=== PATIENT | female | born 1965 | race Caucasian/White ===

== ENCOUNTER → 2017-12-25 12:26 | Outpatient (CLI) | payer OTHER, SELFPAY ==
--- NOTE | 2017-12-25 | DI.MRI.S_ITS ---
PROCEDURE: MR PELIS WO/W CON INDICATIONS: ARTHROPATHY TECHNIQUE: Noncontrast axial and oblique coronal T1 spin echo and STIR through the sacroiliac joints. COMPARISON: None. FINDINGS: Image quality: Excellent. Bones: The sacroiliac joints appear int preserved no act. No periarticular bone marrow edema or enhancement to suggest acute sacroiliitis. No periarticular sclerosis or fatty changes. No discrete bony erosions. No bony ankylosis. There are small cystic changes and enhancement in the left femoral head at the head-neck junction. No suspicious marrow space occupying lesions. The visualized lower lumbar spine demonstrates facet arthropathy at the lumbosacral junction. Soft tissues: No presacral masses. Visualized bowel loops appear normal in caliber and wall thickness. No pathologic free pelvic fluid. There are multiple intramural uterine fibroids noted, including a right paracentral fibroid in the fundus measuring approximately 1.7 x 1.1 cm and a left lateral intramural fibroid measuring 1.4 x 1.0 cm. There is a small amount of fluid in the endometrium likely representing physiologic changes. IMPRESSION: 1. No evidence of sacroiliitis. 2. Small cystic changes anteriorly in the left femoral head-neck junction suggestive of synovial herniation pits. The findings are nonspecific but may be associated with femoral acetabular impingement in the appropriate clinical context. 3. Multiple small intramural uterine fibroids. Dictated by: Gonzalo Headley M.D. on 12/25/2017 at 16:02 Approved by: Gonzalo Headley M.D. on 12/25/2017 at 16:08
== END ==
PROVIDERS: PCP Family Medicine; Visit Provider Specialist/Technologist Athletic Trainer
DX: M47.817 Spondylosis without myelopathy or radiculopathy, lumbosacral region (principal); M12.9 Arthropathy, unspecified; D25.1 Intramural leiomyoma of uterus
CPT/HCPCS: 72197; A9579

== ENCOUNTER → 2018-01-08 10:18 | Outpatient (CLI) | payer OTHER, SELFPAY ==
--- NOTE | 2018-01-08 | DI.MG.S_ITS ---
BILATERAL DIGITAL SCREENING MAMMOGRAM 3D/2D WITH CAD: 01/08/2018 CLINICAL: Routine screening. Family history of breast cancer. Comparison is made to exams dated: 10/23/2016 mammogram - [facility], 02/03/2015 mammogram, and 10/21/2013 mammogram - [facility]. The tissue of both breasts is heterogeneously dense. This may lower the sensitivity of mammography. Current study was also evaluated with a Computer Aided Detection (CAD) system. No significant masses, calcifications, or other findings are seen in either breast. There has been no significant interval change. IMPRESSION: NEGATIVE There is no mammographic evidence of malignancy. A 1 year screening mammogram is recommended.(01/09/2019) This exam was interpreted at Station ID: [id number]. NOTE: For mammograms, a report in lay terms will be sent to the patient. Approximately 15% of breast malignancies will not be visualized mammographically. In the management of a palpable breast mass, a negative mammogram must not discourage biopsy of a clinically suspicious lesion. Electronically Signed By: Ced mcdowell/andrew:01/08/2018 23:25:05 letter sent: Normal Exam ACR BI-RADS Category 1: Negative 3341F
== END ==
PROVIDERS: PCP Family Medicine; Visit Provider Family Medicine
DX: Z12.31 Encounter for screening mammogram for malignant neoplasm of breast (principal); Z80.3 Family history of malignant neoplasm of breast
CPT/HCPCS: 77063; 77067

== ENCOUNTER → 2018-01-27 09:04 | Outpatient (CLI) | payer OTHER, SELFPAY ==
[2018-01-27 09:23] LABS: Bacteria Urine None Seen; RBC Urine None Seen (0-5/HPF)
[2018-01-27 10:08] LABS: Hematocrit 40.5 % (36-46); Hemoglobin 13.7 g/dL (12.0-16.0); Mean Corpuscular HGB Conc 33.9 % (30-36); Mean Corpuscular Hemoglobin 31.2 PG (26-34); Mean Corpuscular Volume 91.9 fL (80-100); Platelet Count 233 X10^3/uL (150-400); Red Blood Cell Count 4.41 X10^6/uL (4.0-5.2); Red Cell Distribution Width 12.2 % (11.6-14.8)
[2018-01-27 10:18] LABS: Alanine Aminotransferase 31 IU/L (9-52); Albumin 4.2 g/dL (3.5-5.0); Albumin Globulin Ratio 1.4 (1.0-2.8); Alkaline Phosphatase 89 U/L (38-126); Aspartate Aminotransferase 28 IU/L (14-36); BUN Creatinine Ratio 22.5 (6-22); Bilirubin Total 0.5 mg/dL (0.2-1.3); Blood Urea Nitrogen 18 mg/dL (7-17); Calcium 9.2 mg/dL (8.4-10.2); Carbon Dioxide 30 mmol/L (22-32); Chloride 103 mmol/L (98-107); Cholesterol 162 mg/dL (140-199); Estimated Glomerular Filt Rate > 60.0 mL/min (>60); Globulin 3.1 g/dL (1.7-4.1); Glucose 106 mg/dL (70-100); HDL Cholesterol 55 mg/dL (40-60); HEMOLYSIS < 15 (0-50); LDL Cholesterol Calculated 94 mg/dL (<100); Potassium 4.4 mmol/L (3.4-5.1); Sodium 142 mmol/L (137-145); Total Protein 7.3 g/dL (6.3-8.2); Triglycerides 66 mg/dL (35-150)
[2018-01-27 10:25] LABS: Free T4, Direct Thyroxine 0.93 ng/dL (0.78-2.19)
[2018-01-27 11:18] LABS: Appearance Urine UA CLEAR; Bilirubin Urine UA NEGATIVE (NEGATIVE); Color Urine UA YELLOW; Glucose Urine UA NEGATIVE (Normal); Ketones Urine UA NEGATIVE (NEGATIVE); Leukocyte Esterase Urine UA TRACE (NEGATIVE); Nitrite Urine UA NEGATIVE (Negative); Occult Blood Urine UA NEGATIVE (Negative); Protein Urine UA NEGATIVE (Negative); Specific Gravity Urine UA <=1.005 (1.000-1.035); Urobilinogen Urine UA 0.2 E.U./dL (0.2)
[2018-01-27 12:08] LABS: Culture Indicated Urine Cult Not Indicated; Squamous Epithelial Cell Urine 5-10 /HPF; WBC Urine 1-5/HPF (0-5/HPF)
== END ==
PROVIDERS: PCP Family Medicine; Visit Provider Family Medicine
DX: E03.9 Hypothyroidism, unspecified (principal); Z00.00 Encounter for general adult medical examination without abnormal findings; Z51.81 Encounter for therapeutic drug level monitoring
CPT/HCPCS: 36415; 80053; 80061; 81001; 84439; 84443; 84481; 85027

== ENCOUNTER → 2019-01-14 16:05 | Outpatient (CLI) | payer OTHER, SELFPAY ==
--- NOTE | 2019-01-14 | DI.MG.S_ITS ---
BILATERAL DIGITAL SCREENING MAMMOGRAM 3D/2D WITH CAD: 01/14/2019 CLINICAL: Routine screening. Family history of breast cancer. Comparison is made to exams dated: 01/08/2018 mammogram, 10/23/2016 mammogram - [facility], and 02/03/2015 mammogram - [facility]. The tissue of both breasts is heterogeneously dense. This may lower the sensitivity of mammography. Current study was also evaluated with a Computer Aided Detection (CAD) system. No significant masses, calcifications, or other findings are seen in either breast. There has been no significant interval change. IMPRESSION: NEGATIVE There is no mammographic evidence of malignancy. A 1 year screening mammogram is recommended. This exam was interpreted at Station ID: [id number]. NOTE: For mammograms, a report in lay terms will be sent to the patient. Approximately 15% of breast malignancies will not be visualized mammographically. In the management of a palpable breast mass, a negative mammogram must not discourage biopsy of a clinically suspicious lesion. Electronically Signed By: Gonzalo obrien/andrew:01/14/2019 17:09:04 letter sent: Normal Exam ACR BI-RADS Category 1: Negative 3341F
== END ==
PROVIDERS: PCP Family Medicine; Visit Provider Family Medicine
DX: Z12.31 Encounter for screening mammogram for malignant neoplasm of breast (principal); Z80.3 Family history of malignant neoplasm of breast
CPT/HCPCS: 77063; 77067

== ENCOUNTER → 2019-03-04 08:39 | Outpatient (CLI) | payer OTHER, SELFPAY ==
[2019-03-04 10:27] LABS: TSH w/ Reflex to FT4 0.74 uIU/mL (0.47-4.68)
== END ==
PROVIDERS: PCP Family Medicine; Visit Provider Family Medicine
DX: E03.9 Hypothyroidism, unspecified (principal)
CPT/HCPCS: 36415; 84443

== ENCOUNTER → 2019-05-18 08:00 | Outpatient (CLI) | payer OTHER, SELFPAY ==
[2019-05-18 08:35] LABS: Add Manual Diff / Slide Review NO; Basophils Absolute Auto 0 /uL (0-100); Basophils Percent Auto 0.6 % (0-2); Eosinophils Absolute Auto 100 /uL (0-450); Eosinophils Percent Auto 1.8 % (2-4); Hematocrit 43.7 % (36-46); Hemoglobin 14.7 g/dL (12.0-16.0); Lymphocytes Absolute Auto 1300 /uL (1100-4500); Lymphocytes Percent Auto 20.3 % (25-40); Mean Corpuscular HGB Conc 33.7 % (30-36); Mean Corpuscular Hemoglobin 30.8 PG (26-34); Mean Corpuscular Volume 91.5 fL (80-100); Monocytes Absolute Auto 700 /uL (0-900); Monocytes Percent Auto 11.1 % (3-14); Neutrophils Absolute Auto 4400 /uL (1500-7000); Neutrophils Percent Auto 66.2 % (50-75); Platelet Count 262 X10^3/uL (150-400); Red Blood Cell Count 4.77 X10^6/uL (4.0-5.2); Red Cell Distribution Width 12.5 % (11.6-14.8); White Blood Cell Count 6.6 X10^3/uL (4.5-11.0)
[2019-05-18 08:41] LABS: Alanine Aminotransferase 23 IU/L (<35); Albumin 4.5 g/dL (3.5-5.0); Albumin Globulin Ratio 1.3 (1.0-2.8); Alkaline Phosphatase 102 U/L (38-126); Aspartate Aminotransferase 28 IU/L (14-36); BUN Creatinine Ratio 13.3 (6-22); Bilirubin Total 0.3 mg/dL (0.2-1.3); Blood Urea Nitrogen 12 mg/dL (7-17); Calcium 9.5 mg/dL (8.4-10.2); Carbon Dioxide 26 mmol/L (22-32); Chloride 103 mmol/L (98-107); Cholesterol 160 mg/dL (140-199); Estimated Glomerular Filt Rate > 60.0 mL/min (>60); Globulin 3.4 g/dL (1.7-4.1); Glucose 120 mg/dL (70-100); HDL Cholesterol 39 mg/dL (40-60); HEMOLYSIS < 15 (0-50); LDL Cholesterol Calculated 100 mg/dL (<100); Potassium 4.1 mmol/L (3.4-5.1); Sodium 139 mmol/L (137-145); Total Protein 7.9 g/dL (6.3-8.2); Triglycerides 104 mg/dL (35-150)
[2019-05-18 09:10] LABS: Free T3, Triiodothyronine Free 2.81 pg/mL (2.77-5.27); Free T4, Direct Thyroxine 0.88 ng/dL (0.78-2.19)
[2019-05-18 09:24] LABS: Thyroid Stimulating Hormone 2.13 uIU/mL (0.47-4.68)
== END ==
PROVIDERS: PCP Family Medicine; Referring Provider Family Medicine; Visit Provider Family Medicine
DX: Z00.00 Encounter for general adult medical examination without abnormal findings (principal); K21.9 Gastro-esophageal reflux disease without esophagitis; E03.9 Hypothyroidism, unspecified; Z13.220 Encounter for screening for lipoid disorders
CPT/HCPCS: 36415; 80053; 80061; 84439; 84443; 84481; 85025

== ENCOUNTER 2019-05-29 07:20 | Day surgery (SDC) | payer OTHER, SELFPAY ==
--- NOTE | 2019-05-29 | PATH_ITS ---
[facility] Accession Number: [id number] . 01 Material submitted: . PART A: duodenum - DUODENUM BIOPSIES PART B: gastrointestinal site - GASTRIC MUCOSA BIOPSIES PART C: esophagus - DISTAL ESOPHAGUS BIOPSIES . 01 Clinical history: . A: RULE OUT H.PYLORI . 02 Diagnosis: A. Duodenum, Biopsy: Duodenal mucosa with no diagnostic abnormality. Negative for active inflammation, features of sprue, dysplasia, or malignancy. . B. Stomach, Biopsies: Gastric antral mucosa with mild chronic inflammation. Negative for Helicobacter organisms by immunohistochemistry. Negative for intestinal metaplasia. Negative for dysplasia or malignancy. . C. Distal Esophagus, Biopsies: Proximal gastric-type mucosa with mild chronic inflammation. Negative for specialized intestinal metaplasia, dysplasia or malignancy. [facility] 06/02/2019 1504 Local . 02 Electronically signed: . Quinton Rojas MD, PhD, Pathologist NPI- [id number] . 01 Gross description: . Part A: DUODENUM BIOPSIES: Received in formalin are 3 fragment(s) of beckett, soft tissue measuring 0.1 x 0.1 x 0.1 cm to 0.2 x 0.2 x 0.1 cm submitted entirely in 1 cassette(s) Part B: GASTRIC MUCOSA BIOPSIES: Received in formalin is 1 fragment(s) of beckett, soft tissue measuring 0.3 x 0.3 x 0.2 cm submitted entirely in 1 cassette(s) Part C: DISTAL ESOPHAGUS BIOPSIES: Received in formalin is 1 fragment(s) of beckett, soft tissue measuring 0.2 x 0.2 x 0.2 cm submitted entirely in 1 cassette(s) /[facility] 05/30/2019 0018 Local . 02 Microscopic: . B. An immunohistochemical stain was performed to evaluate for Helicobacter organisms and is negative. The control stain showed appropriate reactivity. . * This test was developed and its performance characteristics determined by [employer]. It has not been cleared or approved by the U.S. Food and Drug Administration. The FDA has determined that such clearance or approval is not necessary. This test is used for clinical purposes. It should not be regarded as investigational or for research. . 02 Pathologist provided ICD-10: K29.70, K21.9 . 02 CPT . 484461, 686655, 111848, X82933 Performed at: 01 [facility] [address] [address], [place], [place] [id number] MD Gonzalo Vicente MD Phone: [phone] Performed at: 02 [facility] [address] [place] [id number] MD Malou Gurrola MD Phone: [phone]
[2019-05-29 08:22] VITALS: BP 123/85; PULSE 78; RESP 15; TEMP 36.2; O2SAT 99; BMI 25.7
[2019-05-29] MEDS: SODIUM CHLORIDE 0.9% 1,000 ML 200 ML IV (08:29)
--- NOTE | 2019-05-29 08:38 | PM.HP.1 ---
History of Present Illness History of Present Illness Date Patient Seen: 05/29/19 Time Patient Seen: 08:38 Chief complaint: [id number] Narrative: This patient is here for EGD and colonoscopy. No changes since visit on 04/28/2019 Clinic HPI from 04/28/2019: This is a 53-year-old woman who has history of a colonoscopy about 10 years ago for rectal bleeding, during which she was found to have some hemorrhoids. She reports chronic constipation, and says she takes a daily stool softener. She does not like to take fiber supplements as these make her very gassy which causes her a lot of pain. She has never taken a fiber supplement for more than a few days before she quit taking it because of this symptom. She feels her constipation is worse when her thyroid medication is often she is relatively hypothyroid. She just went through a period of decreasing her medication and it is now been increased again because she developed hypothyroid symptoms on her medication was decreased. She denies any melena or bright red blood per rectum. She does sometimes have a pain in her rectum that she feels is ascending up into the abdomen. This is intermittent and not frequent. In addition she has some upper GI symptoms including a sense of fullness and early satiety even when she hasn't eaten. This is associated with some burping and seems especially prominent after eating fried foods or more than a small amount of food. She feels or digestion is delayed. This comes and goes. She does not have it every day. She notices feeling especially when she was taking ibuprofen for some back pain. She has a frequent globus sensation, especially whenever she takes a pill she feels that it gets stuck in her throat. She feels like stomach acid comes up frequently. She says she often feels dehydrated, and she does drink fluids during the night and then immediately lies down again. She often feels it come right back up into her throat when she does this. She was put on omeprazole for 2 weeks, to be taken daily. She started taking it twice daily and noticed significant relief of her symptoms. However, she stop taking after about 2 weeks because the prescription was not written to be a long-term medication. She denies any respiratory symptoms, asthma, pneumonia. ROS: In addition the patient reports easy bruising, irregular menstrual cycle, joint pain, fatigue, occasional night sweats, occasional voice changes, decreased exercise tolerance. Thirteen system review is otherwise negative other than as mentioned below and in HPI. PE: GENERAL: Well groomed and cooperative. Appears stated age. Answers questions promptly and appropriately. Vital signs noted. HENT: Normocephalic, atraumatic. Hearing intact. Oral mucosa is pink and moist. EYES: Conjunctiva pink, sclera white, no periorbital swelling. CARDIOVASCULAR: Regular rate. No pedal edema. RESPIRATORY: Non-tachypneic, breathing comfortably on room air. GASTROINTESTINAL: Abdomen soft and non-distended GENITALURINARY: No flank tenderness. MUSCULOSKELETAL: Equal tone and mass bilaterally. SKIN: Warm, dry, soft, appropriate color for ethnicity. No other lesions, rashes, or wounds. NEURO: Alert and Oriented X 3. No gross sensory deficits, or cognitive issues. PSYCH: Appropriate affect and mood. Patient History Family & Social History Family History Brother Age: 51 Hyperlipidemia Mental health disorder Asthma Brother Age: 48 Back problem Father Age: 77 Pancreatic cancer Hypertension Grandfather Digestive problems Grandmother Hypertension Stroke Mother Diabetes mellitus Mental health disorder Grandfather Stroke Grandmother Diabetes mellitus Heart disease Hypertension Hyperlipidemia Sister Age: 40 Back problem Social History: household members spouse Tobacco & Substance use: Smoking Status Never smoker alcohol intake current alcohol intake frequency holiday/special occasion Substance Use Type does not use Meds Home Medications and Allergies Home Medications Medication Instructions Recorded Confirmed Type [PAMPRIN] 2 tab PO PRN PRN #0 05/15/16 05/29/19 History glucosamine-chondroitin [Osteo 2 tab PO DAILY #0 05/15/16 05/29/19 History Bi-Flex] Calcium 600-D3 Plus (mag-zinc) 1 tab PO QDAY #0 02/05/17 05/29/19 History magnesium 200 mg PO DAILY PRN #0 02/05/17 05/29/19 History minoxidil [Rogaine] 1 ml TOPICAL BID #0 02/05/17 05/29/19 History clobetasol 0.05 % scalp solution 0.05 % TOPICAL BID #50 ml 05/27/18 05/29/19 Rx acetaminophen 325 mg capsule 325 mg PO ONCE PRN 04/13/19 05/29/19 History diphenhydramine HCl 25 mg capsule 25 mg PO BEDTIME 04/13/19 05/29/19 History levothyroxine 75 mcg tablet See Rx Instructions .ROUTE 04/13/19 05/29/19 Rx .COMPLEX #90 tab melatonin 5 mg capsule 5 mg PO DAILY PRN 04/13/19 05/29/19 History acetaminophen 500 mg PO TID 05/29/19 05/29/19 History ascorbic acid (vitamin C) [Vitamin 1,000 mg PO DAILY 05/29/19 05/29/19 History C] docusate sodium 100 mg PO DAILY 05/29/19 05/29/19 History esomeprazole magnesium 20 mg PO BID 05/29/19 05/29/19 History Allergies Allergy/AdvReac Type Severity Reaction Status Date / Time No Known Allergies Allergy Verified 05/29/19 07:59 Exam Vital Signs (past 8 hours): - 05/29/19 08:22 Temperature 97.2 F L Pulse Rate 78 Respiratory Rate 15 Blood Pressure 123/85 Pulse Oximetry 99 Oxygen Delivery Method Room Air Assessment & Plan Assessment and plan (1) Anal pain: Current visit: No Status: Acute (2) Constipation: Current visit: No Status: Acute (3) Abdominal pain: Current visit: No Status: Acute (4) Bloating: Current visit: No Status: Acute (5) Early satiety: Current visit: No Status: Acute (6) Encounter for screening colonoscopy: Current visit: No Status: Acute (7) At average risk for colon cancer: Current visit: No Status: Acute (8) Globus sensation: Current visit: No Status: Acute (9) GERD (gastroesophageal reflux disease): Qualifiers: Esophagitis presence: without esophagitis Qualified Code(s): K21.9 - Gastro-esophageal reflux disease without esophagitis Current visit: No Status: Acute Assessment & Plan narrative: Risks and benefits of screening EGD, with possible biopsy, as well as colonoscopy and possible polypectomy were discussed with the patient including risk of bleeding, perforation, need for additional procedures, risks of anesthesia. The patient desires to proceed with the colonoscopy procedure. Time Spent With Patient Time with patient: 15-24 minutes Quality VTE Deep Vein Thrombosis/Pulmonary Embolism Present on Admission: No
--- NOTE | 2019-05-29 09:30 | PM.OP.ENDO ---
Operative Date/Time/Diagnoses Date of procedure: 05/29/19 Time of procedure: 09:30 Pre-op diagnosis: Early satiety, bloating, reflux symptoms, constipation, abdominal pain Post-op diagnosis: other (Gastritis, normal appearing colon) Procedure & Clinicians Study performed: EGD and biopsies, colonoscopy Procedural sedation given by the surgeon Same procedure as scheduled: Yes Indications: Average risk for colon cancer, in need of screening colonoscopy, multiple GI complaints Surgeon: Bindu Garnica Procedure Notes SCOAP/Timeout: Performed Procedure in detail: The patient was brought to the room and placed in left lateral decubitus position with all bony prominences padded. A time-out was performed and then the patient was given procedural sedation starting with 4 mg of Versed and 100 mcg of fentanyl. A total of 7 mg of Versed and 200 micro g of fentanyl were given for the entire procedure. Vitals were monitored throughout the procedure and remained stable. Once adequately sedated the procedure was begun. A bite block was placed to protect the teeth from the scope. The gastroscope was passed through the bite block and across the tongue, and into the esophagus without incident. A tubular view of the esophagus was obtained, and maintained as the scope was passed down the esophagus into the stomach. The scope was then passed through the stomach and popped through the pylorus into the duodenal bulb, and then flexed into the 2nd part of the duodenum. The duodenum appeared normal. Biopsies were taken. The duodenal bulb appeared normal, biopsies were taken. The pylorus appeared normal, and I backed out into the stomach. There was some endoscopic gastritis in the gastric antrum and gastric body. I took biopsies of the gastric mucosa. I then retroflexed and looked up to the hiatus. There was a Hill grade 2 hiatal hernia. I then mignon the scope back out into the esophagus and took biopsies at the GE junction. There was some minor mucosal breaks of less than 5 mm, and the Z-line looked fairly normal. The crural pinch in the Z-line were both at about 35 cm. There was no significant appearance of esophagitis. This concluded the EGD, and attention was then turned to the colonoscopy portion of the procedure. A rectal exam was performed revealing no abnormalities. The colonoscope was then introduced to the rectum and advanced to the cecum in the usual fashion. The cecum was identified by the appendiceal orifice, the mucosal tri-fold, and the ileocecal valve. The scope was then retracted while rotating side to side and examining each mucosal fold. The colon was quite tortuous, but no mucosal abnormalities were seen, and no polyps or lesions were seen. At the conclusion of the procedure retroflexion was performed and small grade 1-2 internal hemorrhoids without stigmata of bleeding were seen. The scope was then withdrawn from the rectum the procedure was concluded. The patient tolerated the procedure well and was transferred to the PACU in stable condition. Scope withdrawal time: 8 Sedation minutes: 35 Findings: gastritis and hiatal hernia (Small, Hill grade 2) Specimen(s): other (Biopsies of duodenum, gastric mucosa, and GE junction) Complications: none Impression: Normal appearing colon, normal-appearing duodenum and esophagus, with great gastritis in the stomach. Post-procedure Recommendations: Colonscopy in 10 years Plan for aftercare: Follow-up to discuss next steps and biopsy results Follow up: weeks (Two weeks) Disposition: PACU
[2019-05-29] MEDS: LIDOCAINE 4% SOLN 50 ML 20 ML TOP (09:32)
[2019-05-29] MEDS: MIDAZOLAM 5 MG/ML VIAL 4 MG IV (09:33)
[2019-05-29] MEDS: fentaNYL 250 MCG/5 ML INJ IV (09:34)
[2019-05-29 09:36] VITALS: BP 123/69; PULSE 67; RESP 12; TEMP 36.9; O2SAT 97
[2019-05-29 09:40] VITALS: BP 116/70; PULSE 69; RESP 12; O2SAT 97
[2019-05-29 09:45] VITALS: BP 108/71; PULSE 60; RESP 11; O2SAT 97
[2019-05-29 09:49] VITALS: BP 115/69; PULSE 76; RESP 16; TEMP 36.9; O2SAT 98
== END 2019-05-29 10:09 | disposition home or self-care (01) ==
LOC: ENDO 07:21
PROVIDERS: PCP Family Medicine; Referring Provider Surgery; Visit Provider Surgery
PROC: 0DJ08ZZ Inspection of Upper Intestinal Tract, Via Natural or Artificial Opening Endoscopic (ICD-10-PCS; CPT 43235; principal; 2019-05-29 08:30)
PROC: 0DJD8ZZ Inspection of Lower Intestinal Tract, Via Natural or Artificial Opening Endoscopic (ICD-10-PCS; CPT 45378; 2019-05-29 08:30)
DX: K64.0 First degree hemorrhoids (principal); K29.50 Unspecified chronic gastritis without bleeding; K21.9 Gastro-esophageal reflux disease without esophagitis; K44.9 Diaphragmatic hernia without obstruction or gangrene
CPT/HCPCS: 43239; 45378; 99152; 99153; J2250; J3010

== ENCOUNTER → 2019-06-18 09:07 | Outpatient (CLI) | payer OTHER, SELFPAY ==
--- NOTE | 2019-06-18 10:13 | DI.US.S_ITS ---
PROCEDURE: US ABDOMEN LIMITED INDICATIONS: RUQ PAIN TECHNIQUE: Real-time focused scanning was performed of the abdomen, with image documentation. COMPARISON: None. FINDINGS: Visualized liver is diffusely increased echotexture. However it is No gallstones. No gallbladder wall thickening, pericholecystic fluid or sonographic Lanza's sign. Common buttock measures 2.9 mm in diameter. Pancreas is normal. No free fluid. IMPRESSION: 1. Normal ultrasound appearance of gallbladder. 2. Diffusely increased hepatic echotexture. This finding is most likely secondary to hepatic fatty infiltration although other hepatocellular disease may have a similar appearance. Recommend clinical correlation. Dictated by: Franky Mota M.D. on 06/18/2019 at 16:47 Approved by: Franky Mota M.D. on 06/18/2019 at 16:49
== END ==
PROVIDERS: PCP Family Medicine; Referring Provider Surgery; Visit Provider Surgery
DX: R10.11 Right upper quadrant pain (principal)
CPT/HCPCS: 76705

== ENCOUNTER → 2019-11-05 14:49 | Outpatient (CLI) | payer OTHER, SELFPAY ==
[2019-11-05 15:18] LABS: Add Manual Diff / Slide Review NO; Basophils Absolute Auto 0 /uL (0-100); Basophils Percent Auto 0.3 % (0-2); Eosinophils Absolute Auto 100 /uL (0-450); Eosinophils Percent Auto 1.3 % (2-4); Hematocrit 41.8 % (36-46); Lymphocytes Absolute Auto 2300 /uL (1100-4500); Lymphocytes Percent Auto 27.2 % (25-40); Mean Corpuscular HGB Conc 33.6 % (30-36); Mean Corpuscular Hemoglobin 30.7 PG (26-34); Mean Corpuscular Volume 91.2 fL (80-100); Monocytes Absolute Auto 700 /uL (0-900); Monocytes Percent Auto 7.9 % (3-14); Neutrophils Absolute Auto 5300 /uL (1500-7000); Neutrophils Percent Auto 63.3 % (50-75); Platelet Count 226 X10^3/uL (150-400); Red Blood Cell Count 4.58 X10^6/uL (4.0-5.2); Red Cell Distribution Width 12.4 % (11.6-14.8); White Blood Cell Count 8.4 X10^3/uL (4.5-11.0)
[2019-11-05 15:24] LABS: Hemoglobin A1C% w Est Avg Glu 5.5 % (4.0-6.0)
[2019-11-05 15:56] LABS: Alanine Aminotransferase 24 IU/L (<35); Albumin 4.4 g/dL (3.5-5.0); Albumin Globulin Ratio 1.4 (1.0-2.8); Alkaline Phosphatase 114 U/L (38-126); Aspartate Aminotransferase 31 IU/L (14-36); BUN Creatinine Ratio 17.6 (6-22); Bilirubin Total 0.5 mg/dL (0.2-1.3); Blood Urea Nitrogen 21 mg/dL (7-17); Calcium 9.8 mg/dL (8.4-10.2); Carbon Dioxide 28 mmol/L (22-32); Chloride 102 mmol/L (98-107); Estimated Glomerular Filt Rate 47.6 mL/min (>60); Globulin 3.1 g/dL (1.7-4.1); Glucose 102 mg/dL (70-100); HEMOLYSIS < 15 (0-50); Potassium 4.2 mmol/L (3.4-5.1); Sodium 138 mmol/L (137-145); Total Protein 7.5 g/dL (6.3-8.2)
[2019-11-05 16:25] LABS: Thyroid Stimulating Hormone 0.558 uIU/mL (0.47-4.68)
== END ==
PROVIDERS: Referring Provider Registered Nurse; Visit Provider Registered Nurse
DX: E03.9 Hypothyroidism, unspecified (principal); R53.83 Other fatigue; Z83.3 Family history of diabetes mellitus
CPT/HCPCS: 36415; 80053; 83036; 84443; 85025

== ENCOUNTER → 2019-11-12 08:01 | Outpatient (CLI) | payer OTHER, SELFPAY ==
[2019-11-12 09:32] LABS: Alanine Aminotransferase 20 IU/L (<35); Albumin 4.2 g/dL (3.5-5.0); Albumin Globulin Ratio 1.4 (1.0-2.8); Alkaline Phosphatase 110 U/L (38-126); Aspartate Aminotransferase 29 IU/L (14-36); BUN Creatinine Ratio 22.5 (6-22); Bilirubin Total 0.5 mg/dL (0.2-1.3); Blood Urea Nitrogen 16 mg/dL (7-17); Calcium 9.7 mg/dL (8.4-10.2); Carbon Dioxide 25 mmol/L (22-32); Chloride 102 mmol/L (98-107); Estimated Glomerular Filt Rate > 60.0 mL/min (>60); Globulin 2.9 g/dL (1.7-4.1); Glucose 110 mg/dL (70-100); HEMOLYSIS < 15 (0-50); Potassium 4.3 mmol/L (3.4-5.1); Sodium 136 mmol/L (137-145); Total Protein 7.1 g/dL (6.3-8.2)
== END ==
PROVIDERS: PCP Registered Nurse; Referring Provider Registered Nurse; Visit Provider Registered Nurse
DX: R89.9 Unspecified abnormal finding in specimens from other organs, systems and tissues (principal)
CPT/HCPCS: 36415; 80053

== ENCOUNTER → 2019-11-26 09:33 | Outpatient (CLI) | payer OTHER, SELFPAY ==
--- NOTE | 2019-11-26 09:35 | DI.NM.S_ITS ---
PROCEDURE: NM HIDA WITH CCK PHARMACEUTICAL: 5.1 mCi Tc-99m mebrofenin IV; 1.4 mcg CCK IV. INDICATIONS: abdominal pain, rule out biliary dyskinesia TECHNIQUE: Following intravenous administration of Tc-99m mebrofenin, sequential anterior abdominal images were obtained. To evaluate the contractile response of the gallbladder in response to Cholecystokinin (CCK), sincalide (0.02 ?g/kg) was administered by slow intravenous infusion approximately 60 minutes after the administration of the radiopharmaceutical. Sequential imaging was continued for 30 minutes after the start of CCK infusion. Gallbladder ejection fraction was calculated. COMPARISON: None. FINDINGS: Biliary scan: There is normal tracer uptake and excretion by the liver. There is normal visualization of the intrahepatic ducts, common bile duct, and gallbladder. There is normal tracer transit into the duodenum. CCK stimulation: There is normal contractile response of the gallbladder to CCK infusion. The calculated gallbladder ejection fraction is 79% ; normal values are above 35%. It has been shown that any patient abdominal pain after CCK administration is related to the rate of CCK injection, rather than to any underlying gallbladder disease (Clinical Nuclear Medicine 2012; 37: 63-70. Journal of Nuclear Medicine 2014; 55: 1-9). IMPRESSION: Normal hepatic slight uptake and excretion of the radioisotope, patency of the cystic duct is documented by reflux filling of the gallbladder. Normal gallbladder ejection fraction of 79% after cholecystokinin administration. Overall, normal study. Dictated by: Flaco Sanchez M.D. on 11/26/2019 at 11:59 Approved by: Flaco Sanchez M.D. on 11/26/2019 at 12:00
== END ==
PROVIDERS: PCP Registered Nurse; Referring Provider Surgery; Visit Provider Surgery
DX: R10.84 Generalized abdominal pain (principal); R14.0 Abdominal distension (gaseous); K21.9 Gastro-esophageal reflux disease without esophagitis; R09.89 Other specified symptoms and signs involving the circulatory and respiratory systems; K76.0 Fatty (change of) liver, not elsewhere classified
CPT/HCPCS: 78227; 99214; A9537; J2805